=== PATIENT | male | born 1975 | race American Indian/Alaskan Native ===

== ENCOUNTER 2020-12-17 13:33 | Emergency (ER) | payer SELFPAY ==
[2020-12-17 13:40] VITALS: BP 151/81
--- NOTE | 2020-12-17 15:51 | XRay Report ---
LEFT ANKLE 3 VIEWS INDICATION: LEFT ANKLE PAIN. COMPARISON: None. IMPRESSION: There is diffuse soft tissue swelling. No acute osseous abnormality or significant join t pathology. A large enthesophytes is present at the insertion site of the Achilles tendon. Signer Name: Lester Isaac Jr, MD Signed: 12/17/2020 3:46 PM Workstation Name: [id number]
--- NOTE | 2020-12-17 16:03 | Emergency Department Report ---
ED Lower Extremity HPI - General Chief Complaint: Extremity Injury, Lower Stated Complaint: HEEL PAIN Time Seen by Provider: 12/17/20 15:08 Source: patient Mode of arrival: Ambulatory Limitations: No Limitations - History of Present Illness Initial Comments: This is a 45-year-old male nontoxic, well nourished in appearance, no acute signs of distress presents to the ED with c/o of left ankle pain 1 day. Patient stated that he was walking and twisted ankle and felt a popping sensation to Achilles area. Patient denies any other injuries or trauma. Patient denies any numbness, tingling, fever, chills, nausea, vomiting, chest pain, shortness of breath, headache, stiff neck. Patient denies any joint swelling or joint redness. Patient stated has some decreased range of motion and abnormal gait due to pain. Patient denies any allergies. MD Complaint: ankle injury Injury: Ankle: Left Severity: mild Severity scale (0 -10): 8 Improves With: immobilization Worsens With: weight bearing, movement, palpation Associated Symptoms: snap/pop sensation, swelling, able to partially bear weight. denies: numbness, tingling, unable to bear weight - Related Data Previous Rx's Medication Instructions Recorded Last Taken Type Naproxen 500 mg PO Q12H PRN #12 tablet 12/17/20 Unknown Rx Allergies Allergy/AdvReac Type Severity Reaction Status Date / Time No Known Allergies Allergy Unverified 12/17/20 13:35 ED Review of Systems ROS: Stated complaint: HEEL PAIN Other details as noted in HPI Comment: All other systems reviewed and negative Constitutional: denies: chills, fever Eyes: denies: eye pain, eye discharge, vision change ENT: denies: ear pain, throat pain Respiratory: denies: cough, shortness of breath, wheezing Cardiovascular: denies: chest pain, palpitations Endocrine: no symptoms reported Gastrointestinal: denies: abdominal pain, nausea, diarrhea Genitourinary: denies: urgency, dysuria Musculoskeletal: denies: back pain, joint swelling, arthralgia Skin: denies: rash, lesions Neurological: denies: headache, weakness, paresthesias Psychiatric: denies: anxiety, depression Hematological/Lymphatic: denies: easy bleeding, easy bruising ED Past Medical Hx - Past Medical History Previous Medical History?: No - Surgical History Past Surgical History?: No - Medications Home Medications: Home Medications Medication Instructions Recorded Confirmed Last Taken Type Naproxen 500 mg PO Q12H PRN #12 tablet 12/17/20 Unknown Rx ED Physical Exam - General Limitations: No Limitations General appearance: alert, in no apparent distress - Head Head exam: Present: atraumatic, normocephalic - Eye Eye exam: Present: normal appearance - Neck Neck exam: Present: normal inspection, full ROM. Absent: lymphadenopathy - Respiratory Respiratory exam: Absent: respiratory distress - Cardiovascular Cardiovascular Exam: Present: regular rate - Extremities Exam Extremities exam: Present: full ROM (with pain), tenderness, normal capillary refill, other (Positive left Espinal test). Absent: pedal edema, joint sw elling, calf tenderness - Expanded Lower Extremity Exam Left Hip exam: Present: normal inspection, full ROM. Absent: tenderness, swelling Upper Leg exam: Present: normal inspection, full ROM. Absent: tenderness, swell ing Knee exam: Present: normal inspection, full ROM. Absent: tenderness, swelling Lower Leg exam: Present: normal inspection, full ROM. Absent: tenderness, swelling Ankle exam: Present: full ROM (With pain), tenderness, swelling, ecchymosis. Absent: abrasion, laceration, deformity, crepidus, dislocation, erythema, anteri or draw sign Foot/Toe exam: Present: normal inspection, full ROM. Absent: tenderness, swelling Neuro vascular tendon exam: Present: no vascular compromise Gait: Positive: observed and limited by pain 1 - Pain and swelling here - Back Exam Back exam: Present: normal inspection - Neurological Exam Neurological exam: Present: alert, oriented X3, normal gait - Psychiatric Psychiatric exam: Present: normal affect, normal mood - Skin Skin exam: Present: warm, dry, intact, normal color. Absent: rash ED Course Vital Signs 12/17/20 13:37 Temperature 98.0 F Pulse Rate 76 Respiratory 20 Rate Blood Pressure 151/81 O2 Sat by Pulse 94 Oximetry - Reevaluation(s) Reevaluation #1: 12/17/20 16:04 Patient is speaking in full sentences with no signs of distress noted. ED Lower Extremity MDM - Radiology Data [facility] [address] [place] [address] XRay Report Signed Patient: CHRISTOPHER LEPE MR#: [id number] : 1975 Acct:[id number] Age/Sex: 45 / M ADM Date: 12/17/20 Loc: ED Attending Dr: Ordering Physician: JACKSON BEAR NP Date of Service: 12/17/20 Procedure(s): XR ankle 3+V LT Accession Number(s): [id number] cc: JACKSON BEAR NP Fluoro Time In Minutes: LEFT ANKLE 3 VIEWS INDICATION: LEFT ANKLE PAIN. COMPARISON: None. IMPRESSION: There is diffuse soft tissue swelling. No acute osseous abnormality or significant joint pathology. A large enthesophytes is present at the insertion site of the Achilles tendon. Signer Name: Lester Isaac Jr, MD Signed: 12/17/2020 3:46 PM Workstation Name: [id number] Transcribed By: TTR Dictated By: LESTER ISAAC JR, MD Electronically Authenticated By: LESTER ISAAC JR, MD Signed Date/Time: 12/17/20 1546 DD/ 154 TD/TT: - Medical Decision Making This is a 45-year-old male that presents with left ankle tendon injury. Patient is stable and was examined by me. I referred patient to an orthopedic doctor for further evaluation for possible MRI. X-ray has been obtained and dictated by the radiologist. Patient is notified of the x-ray report with noted by the patient. Patient received a Panda splint and crutches. Was educated by RN how to use crutches. Post splint assessment: neurovasular intact; normal cap refill <2 second; normal sensation; denies decreaed sensation; normal ROM of digits. Patient was instructed to RICE therapy. Patient is discharged with naproxen. At time of discharge, the patient does not seem toxic or ill in appearance. No acute signs of distress noted. Patient agrees to discharge treatment plan of care. No further questions noted by the patient. Critical care attestation.: If time is entered above; I have spent that time in minutes in the direct care of this critically ill patient, excluding procedure time. ED Disposition Clinical Impression: Injury of left Achilles tendon Qualifiers: Encounter type: initial encounter Qualified Code(s): S86.002A - Unspecified injury of left Achilles tendon, initial encounter Disposition: HOME / SELF CARE / HOMELESS Is pt being admited?: No Does the pt Need Aspirin: No Condition: Stable Instructions: Achilles Tendon Tear, RICE Therapy for Routine Care of Injuries, [id number], Crutch Use, Adult, [id number], Cast or Splint Care, Adult, [id number] Additional Instructions: Follow-up with a orthopedic doctor in 3-5 days or if symptoms worsen and continue return to emergency room as soon as possible. No physical activity that extremity until cleared by orthopedic doctor Prescriptions: Naproxen 500 mg PO Q12H PRN #12 tablet PRN Reason: Pain , Severe (7-10) Referrals: PRIMARY CAREMD [Primary Care Provider] - 3-5 Days ISAAC FONG MD [Staff Physician] - 3-5 Days Forms: Work/School Release Form(ED) Time of Disposition: 16:10
== END 2020-12-17 17:30 | disposition home or self-care (01) ==
LOC: ED 13:33
DX: S86.022A Laceration of left Achilles tendon, initial encounter (principal); X58.XXXA Exposure to other specified factors, initial encounter; Y93.89 Activity, other specified; Y92.89 Other specified places as the place of occurrence of the external cause; Y99.8 Other external cause status
CPT/HCPCS: 99283

== ENCOUNTER 2021-01-28 16:48 | Emergency (ER) | payer OTHER ==
[2021-01-28 17:31] VITALS: BP 178/102
--- NOTE | 2021-01-28 17:41 | Emergency Department Report ---
- General Chief Complaint: Upper Respiratory Infection Stated Complaint: FLU SYMPTOMS Time Seen by Provider: 01/28/21 17:34 Source: patient Mode of arrival: Ambulatory Limitations: No Limitations - History of Present Illness Initial Comments: Patient presents with respiratory symptoms including cough, congestion, fevers, chills, and generalized malaise. He has had no known coronavirus exposures. He has not been out of the country. Patient states that he does not really have a sore throat. He does not have muscle aches, but he states that he just has no energy. He came in for evaluation and treatment. He is very concerned because he is supposed to have surgery on his left Achilles within the next 10 days to 2 weeks. He does not want that surgery canceled. Patient does not have any known exposure to influenza. He did not get an influenza vaccine. - Related Data Previous Rx's Medication Instructions Recorded Last Taken Type Naproxen 500 mg PO Q12H PRN #12 tablet 12/17/20 Unknown Rx Albuterol Sulfate [Proair 2 puff IH 4XD #1 aer.pw.bas 01/28/21 Unknown Rx Digihaler] Benzonatate [Tessalon Perles] 100 mg PO Q8HR #30 capsule 01/28/21 Unknown Rx Doxycycline Monohydrate 100 mg PO BID #20 capsule 01/28/21 Unknown Rx [Doxycycline Monohydrate CAP] Allergies Allergy/AdvReac Type Severity Reaction Status Date / Time No Known Allergies Allergy Unverified 12/17/20 13:35 ED Review of Systems ROS: Stated complaint: FLU SYMPTOMS Other details as noted in HPI Comment: All other systems reviewed and negative Constitutional: see HPI Eyes: denies: vision change ENT: as per HPI Respiratory: see HPI Cardiovascular: denies: chest pain Endocrine: denies: unexplained weight loss Gastrointestinal: denies: abdominal pain Genitourinary: denies: dysuria Musculoskeletal: denies: back pain Skin: denies: rash Neurological: denies: headache Hematological/Lymphatic: denies: easy bruising ED Past Medical Hx - Past Medical History Previous Medical History?: No - Surgical History Past Surgical History?: No - Family History Family history: no significant - Social History Smoking Status: Never Smoker Substance Use Type: None - Medications Home Medications: Home Medications Medication Instructions Recorded Confirmed Last Taken Type Naproxen 500 mg PO Q12H PRN #12 tablet 12/17/20 Unknown Rx Albuterol Sulfate [Proair 2 puff IH 4XD #1 aer.pw.bas 01/28/21 Unknown Rx Digihaler] Benzonatate [Tessalon Perles] 100 mg PO Q8HR #30 capsule 01/28/21 Unknown Rx Doxycycline Monohydrate 100 mg PO BID #20 capsule 01/28/21 Unknown Rx [Doxycycline Monohydrate CAP] ED Physical Exam - General Limitations: No Limitations, Other General appearance: alert (Pulse ox noted and normal), in no apparent distress - Head Head exam: Present: atraumatic, normocephalic, normal inspection - Eye Eye exam: Present: normal appearance, EOMI - ENT ENT exam: Present: normal exam, normal orophraynx - Neck Neck exam: Present: normal inspection. Absent: meningismus - Respiratory Respiratory exam: Present: wheezes (Bilateral), rhonchi (Right base). Absent: respiratory distress - Cardiovascular Cardiovascular Exam: Present: regular rate, normal rhythm - GI/Abdominal GI/Abdominal exam: Present: soft. Absent: tenderness - Extremities Exam Extremities exam: Present: normal capillary refill - Back Exam Back exam: Absent: CVA tenderness (R), CVA tenderness (L) - Neurological Exam Neurological exam: Present: alert, oriented X3, CN II-XII intact, normal gait - Psychiatric Psychiatric exam: Present: normal affect, normal mood - Skin Skin exam: Present: warm, dry ED Course Vital Signs 01/28/21 17:27 Temperature 98.8 F Pulse Rate 83 Respiratory 18 Rate Blood Pressure 178/102 [Left] O2 Sat by Pulse 99 Oximetry - Reevaluation(s) Reevaluation #1: 01/28/21 17:45 Patient was discharged. Old records reviewed ED Medical Decision Making - Medical Decision Making Patient presented with respiratory symptoms. He has a cough producing yellowish phlegm. He reports fevers and chills. He has adventitious breath sounds on the right base that would be concerning for a clinical pneumonia. He was treated empirically with antibiotics and discharged. Patient does not appear to be septic or toxic. There is no evidence of airway compromise. He certainly does not have evidence of respiratory failure. There is no stridor noted. Critical Care Time: No Critical care attestation.: If time is entered above; I have spent that time in minutes in the direct care of this critically ill patient, excluding procedure time. ED Disposition Clinical Impression: Bronchitis Disposition: 01 HOME / SELF CARE / HOMELESS Is pt being admited?: No Condition: Stable Instructions: Chronic Bronchitis (ED), Upper Respiratory Infection, Adult, Easy -to-Read Additional Instructions: Drink plenty water. Return for problems. Alternate Tylenol and ibuprofen for fever. Follow-up with your regular doctor for recheck and further management. Prescriptions: Doxycycline Monohydrate [Doxycycline Monohydrate CAP] 100 mg PO BID #20 capsule Albuterol Sulfate [Proair Digihaler] 2 puff IH 4XD #1 aer.pw.bas Benzonatate [Tessalon Perles] 100 mg PO Q8HR #30 capsule Referrals: PRIMARY CAREMD [Referring] - 3-5 Days ASRAH CAMPOS MD [Staff Physician] - 3-5 Days
== END 2021-01-28 18:00 | disposition home or self-care (01) ==
LOC: ED 16:48
DX: J40 Bronchitis, not specified as acute or chronic (principal); Z79.899 Other long term (current) drug therapy
CPT/HCPCS: 99281